=== PATIENT | male | born 1960 | race Asian ===

== ENCOUNTER 2018-04-16 15:52 | Emergency (ER) | payer OTHER ==
[~2018-04-16] VITALS: Ht 175.3 cm; Wt 77.1 kg
[2018-04-16 15:55] VITALS: BP_SYST 124
[2018-04-16 16:30] VITALS: BP_SYST 124
[2018-04-16] MEDS ORDERED: BACITRACIN 1 GM OINT TP ONE (16:30)
== END 2018-04-16 16:30 | disposition home or self-care (01) ==
LOC: SED 15:52
DX: S62.522A Displaced fracture of distal phalanx of left thumb, initial encounter for closed fracture (principal); S60.112A Contusion of left thumb with damage to nail, initial encounter; W22.8XXA Striking against or struck by other objects, initial encounter; Y93.89 Activity, other specified; Y92.89 Other specified places as the place of occurrence of the external cause; Y99.8 Other external cause status
CPT/HCPCS: 99283